=== PATIENT | female | born 1985 | race Two or more races ===

== ENCOUNTER 2022-07-13 10:40 | Inpatient (IN) | payer OTHER ==
[2022-07-13] MEDS: DEXTROSE 5%-LACTATED RINGERS 1,000 ML IV SCH ×2 (11:00→23:00)
[2022-07-13] MEDS ORDERED: DINOPROSTONE 10 MG VAGINAL SUPPOSITORY VG ONE (12:13)
[2022-07-13 12:27] LABS: BASO % 0.4 % (0-2.0); EOS % 0.5 % (0-4.5); HEMATOCRIT 35.1 % (32.4-45.2); HEMOGLOBIN 11.5 GM/dL (10.7-15.3); LYMPH % 15.9 % (8-40); MCH 30.7 pg (25.7-33.7); MCHC 32.9 g/dl (32.0-36.0); MEAN CELL VOLUME 93.1 fl (80-96); MEAN PLT VOLUME 10.1 fl (7.5-11.1); NEUT % 77.2 % (42.8-82.8); PLATELET COUNT 200 10^3/uL (134-434); RBC 3.77 M/mm3 (3.60-5.2); RDW 14.4 % (11.6-15.6); WHITE BLOOD COUNT 8.9 K/mm3 (4.0-10.0)
[2022-07-13 12:36] LABS: INR 0.95 (0.83-1.09); PROTHROMBIN TIME (PATIENT) 10.9 SEC (9.7-13.0)
[2022-07-13 12:39] LABS: ACTIVATED PTT 27.7 SECONDS (25.2-36.5)
[2022-07-13 12:46] LABS: CALCIUM 8.1 mg/dL (8.5-10.1)
[2022-07-13 12:47] LABS: BLOOD UREA NITROGEN 10.2 mg/dL (7-18)
[2022-07-13 12:50] LABS: CREATININE 0.6 mg/dL (0.55-1.3)
[2022-07-13 12:52] VITALS: BMI 27.5
[2022-07-14] MEDS ORDERED: PROMETHAZINE HCL 25 MG/1 ML VIAL IVPUSH ONE (01:24)
[2022-07-14] MEDS ORDERED: BUTORPHANOL TARTRATE 1 MG/ML VIAL IVPUSH ONE (01:24)
[2022-07-14] MEDS ORDERED: OXYTOCIN 30 UNITS in 0.9% NS 30 UNIT/500 ML INFUS.BAG IVPB ONE (01:41)
[2022-07-14] MEDS: OXYTOCIN 30 UNITS in 0.9% NS 30 UNIT/500 ML INFUS.BAG IVPB SCH (01:45)
[2022-07-14] MEDS ORDERED: PROMETHAZINE HCL 25 MG/1 ML VIAL ONE (03:57)
[2022-07-14] MEDS ORDERED: BUTORPHANOL TARTRATE 2 MG/ML VIAL ONE (03:57)
[2022-07-14] MEDS ORDERED: LIDOCAINE HCL 1% PRESERVATIVE FREE - 30ML VIAL ONE (04:40)
[2022-07-14] MEDS ORDERED: OXYTOCIN 20 UNITS in 0.9% NS 20 UNIT/1,000 ML INFUS.BAG IV ONE (04:40)
[2022-07-14] MEDS ORDERED: WITCH HAZEL 50% (TUCKS) 40 PAD/JAR PAD TP PRN (05:19)
[2022-07-14] MEDS ORDERED: oxyCODONE HCL 5 MG TABLET PO PRN (05:19)
[2022-07-14] MEDS ORDERED: BISACODYL 10 MG SUPP.RECT RC PRN (05:19)
[2022-07-14] MEDS ORDERED: BENZOCAINE 20% 57 GM BOTTLE TP PRN (05:19)
[2022-07-14] MEDS ORDERED: METHYLERGONOVINE MALEATE 0.2 MG/1 ML AMP IM PRN (05:19)
[2022-07-14] MEDS ORDERED: BENZOCAINE 28 GM HEMORRHOIDAL OINTMENT TP PRN (05:19)
[2022-07-14] MEDS ORDERED: ACETAMINOPHEN 325 MG TABLET (FP) PO PRN (05:19)
[2022-07-14] MEDS ORDERED: OXYTOCIN 20 UNITS in 0.9% NS 20 UNIT/1,000 ML INFUS.BAG IV SCH (05:30)
[2022-07-14 06:13] LABS: CORD HCO3 19.9 mmHg (20-29); CORD PCO2 40.9 mmHg (30-78); CORD pH 7.306 (7.14-7.44)
[2022-07-14 06:18] LABS: CORD BASE EXCESS -8.4 mmol/L (0-2); CORD HCO3 19.3 mmHg (20-29); CORD pH 7.222 (7.14-7.44)
[2022-07-14 07:17] LABS: BASO % 0.4 % (0-2.0); EOS % 0.1 % (0-4.5); HEMATOCRIT 31.3 % (32.4-45.2); HEMOGLOBIN 10.2 GM/dL (10.7-15.3); LYMPH % 8.5 % (8-40); MCH 30.4 pg (25.7-33.7); MCHC 32.6 g/dl (32.0-36.0); MEAN CELL VOLUME 93.2 fl (80-96); MEAN PLT VOLUME 10.1 fl (7.5-11.1); MONO % 4.5 % (3.8-10.2); NEUT % 86.5 % (42.8-82.8); PLATELET COUNT 171 10^3/uL (134-434); RBC 3.36 M/mm3 (3.60-5.2); RDW 14.7 % (11.6-15.6); WHITE BLOOD COUNT 14.4 K/mm3 (4.0-10.0)
[2022-07-14 09:32] LABS: POC NITRAZINE POS
[2022-07-14] MEDS: IBUPROFEN 600 MG TABLET (FP) PO PRN (17:35)
[2022-07-15] MEDS: IBUPROFEN 600 MG TABLET (FP) PO PRN ×3 (08:03→21:19)
[2022-07-15 09:10] LABS: BASO % 0.2 % (0-2.0); HEMATOCRIT 30.8 % (32.4-45.2); HEMOGLOBIN 10.3 GM/dL (10.7-15.3); LYMPH % 21.5 % (8-40); MCHC 33.6 g/dl (32.0-36.0); MEAN CELL VOLUME 95.3 fl (80-96); MEAN PLT VOLUME 9.5 fl (7.5-11.1); MONO % 5.5 % (3.8-10.2); NEUT % 71.8 % (42.8-82.8); PLATELET COUNT 156 10^3/uL (134-434); RBC 3.23 M/mm3 (3.60-5.2); RDW 14.8 % (11.6-15.6); WHITE BLOOD COUNT 9.5 K/mm3 (4.0-10.0)
[2022-07-15] MEDS: OXYTOCIN 30 UNITS in 0.9% NS 30 UNIT/500 ML INFUS.BAG IVPB SCH (20:06)
[2022-07-15] MEDS: DEXTROSE 5%-LACTATED RINGERS 1,000 ML IV SCH (20:06)
[2022-07-15] MEDS ORDERED: SENNOSIDES/DOCUSATE COMBO (SENNA PLUS) TABLET (UD) PO PRN (22:00)
[2022-07-16 10:56] VITALS: BP 96/61; PULSE 83; RESP 16; TEMP 97.9
== END 2022-07-16 14:30 | disposition home or self-care (01) | DRG 560 ==
LOC: JLDR 10:40 → J3W 07-14 06:26
PROVIDERS: ADMIT Obstetrics & Gynecology; ATTEND Obstetrics & Gynecology
PROC: 3E0P7VZ Introduction of Hormone into Female Reproductive, Via Natural or Artificial Opening (ICD-10-PCS; 2022-07-13)
PROC: 10E0XZZ Delivery of Products of Conception, External Approach (ICD-10-PCS; principal; 2022-07-14)
PROC: 0UQMXZZ Repair Vulva, External Approach (ICD-10-PCS; 2022-07-14)
PROC: 0W8NXZZ Division of Female Perineum, External Approach (ICD-10-PCS; 2022-07-14)
DX: O41.03X0 Oligohydramnios, third trimester, not applicable or unspecified (principal); O71.82 Other specified trauma to perineum and vulva; O69.81X0 Labor and delivery complicated by cord around neck, without compression, not applicable or unspecified; O70.0 First degree perineal laceration during delivery; Z3A.38 38 weeks gestation of pregnancy; Z37.0 Single live birth
CPT/HCPCS: 36415; 36600; 59409; 80048; 82803; 83986-QW; 85025; 85610; 85730; 86780; 86850; 86900; 86901; C9803-CS; U0003; U0005